=== PATIENT | female | born 1995 | race Caucasian/White ===

== ENCOUNTER 2022-07-19 09:04 | Emergency (ER) | payer BC ==
[2022-07-19] MEDS ORDERED: LORazepam 2 MG/ML SYR.(CARPUJECT) ONE (09:41)
[2022-07-19] MEDS ORDERED: Dexamethasone 10 MG/ML VIAL ONE (09:42)
[2022-07-19] MEDS ORDERED: Ketorolac Tromethamine 30 MG/ML VIAL ONE (09:42)
== END 2022-07-19 12:00 | disposition home or self-care (01) ==
LOC: ERS 09:04
DX: S39.012A Strain of muscle, fascia and tendon of lower back, initial encounter (principal); X50.0XXA Overexertion from strenuous movement or load, initial encounter
CPT/HCPCS: 72100; 96374; 96375; J1100; J1885; J2060

== ENCOUNTER 2023-01-27 10:05 | Emergency (ER) | payer BC, OTHER ==
[2023-01-27] MEDS ORDERED: Ketorolac Tromethamine 30 MG/ML VIAL ONE ×2 (10:28)
[2023-01-27] MEDS ORDERED: Metoclopramide HCl 10 MG/2 ML VIAL ONE (10:28)
[2023-01-27] MEDS ORDERED: diphenhydrAMINE 50 MG/ML VIAL ONE (10:48)
== END 2023-01-27 11:45 | disposition home or self-care (01) ==
LOC: ERS 10:05
DX: G43.909 Migraine, unspecified, not intractable, without status migrainosus (principal)
CPT/HCPCS: 70450; 93005; 96365; 96375; J1200; J1885; J2765